=== PATIENT | male | born 1945 | race Caucasian/White ===

== ENCOUNTER 2023-02-09 16:58 | Inpatient (IN) | payer MEDICARE ==
[~2023-02-09] VITALS: Ht 180.3 cm; Wt 109.8 kg
[2023-02-09] MEDS ORDERED: KETOROLAC TROMETHAMINE 15 MG INJ IVP ONE (17:15)
[2023-02-09] MEDS ORDERED: DEXAMETHASONE SOD PHOSPHATE 4 MG INJ IV ONE (17:15)
[2023-02-09 17:26] LABS: ABG BASE EXCESS 0.2 mmol/L (-2.0-2.0); ABG HCO3 22.6 mmol/L (22.0-26.0); ABG PCO2 30.5 mmHg (35.0-48.0); ABG PH 7.488 (7.340-7.440); ABG PO2 63.3 mmHg (75.0-100.0); ABG SITE LEFT RADIAL; ABG TOTAL HEMOGLOBIN 14.2 G/dL (14.0-18.0); COHb 0.6 % (0.0-3.9); MetHb 0.2 % (0.0-1.5); O2Hb 91.4 % (94.0-97.0)
[2023-02-09] MEDS ORDERED: CEFD300C3 PO (17:31)
[2023-02-09] MEDS ORDERED: METH4TAB16 PO (17:31)
[2023-02-09 17:33] LABS: BASOPHILS # (AUTO) 0.1 K/UL (0.0-0.2); BASOPHILS % (AUTO) 2.4 % (0.0-2.0); HEMOGLOBIN 13.3 g/dL (12.5-16.3); LYMPHOCYTES # (AUTO) 0.6 K/uL (0.8-4.8); LYMPHOCYTES % (AUTO) 14.3 % (20.5-51.5); MEAN CORPUSCULAR HGB CONC 33 g/dL (32.5-36.3); MEAN CORPUSCULAR VOLUME 105.6 fL (73.0-96.2); MONOCYTES # (AUTO) 0.1 K/uL (0.1-1.30); MONOCYTES % (AUTO) 1.4 % (0.0-11.0); NEUTROPHILS # (AUTO) 3.3 K/uL (1.8-8.9); NEUTROPHILS % (AUTO) 81.9 % (38.5-71.5); PLATELET COUNT (AUTO) 132 K/uL (152-348); RED BLOOD CELL COUNT(AUTO) 3.79 MIL/uL (4.06-5.63); RED CELL DISTRIBUTION WIDTH 15.8 % (12.1-16.2)
[2023-02-09 17:44] LABS: CALCIUM 8.4 mg/dL (8.5-10.1); CARBON DIOXIDE 25 mmol/L (21-32); CHLORIDE 102 mmol/L (98-107); CREATININE 1.3 mg/dL (0.6-1.3); GLUCOSE 171 mg/dL (74-106); POTASSIUM 4.1 mmol/L (3.5-5.1); SODIUM SERUM 137 mmol/L (136-145); UREA NITROGEN, BLOOD 21 mg/dL (7-18)
[2023-02-09 17:47] LABS: DIFFERENTIAL COMMENT 1
[2023-02-09] MEDS ORDERED: FERR-56 PO (17:47)
[2023-02-09] MEDS ORDERED: AMOX500T2 PO (17:47)
[2023-02-09] MEDS ORDERED: CHOL2000 PO (17:47)
[2023-02-09] MEDS ORDERED: DILT-2 PO (17:47)
[2023-02-09] MEDS ORDERED: PANT40TA49 PO (17:47)
[2023-02-09] MEDS ORDERED: CLAR-45 PO (17:47)
[2023-02-09] MEDS ORDERED: ROSU10TA2 PO (17:47)
[2023-02-09] MEDS ORDERED: POLY119P17 PO (17:47)
[2023-02-09] MEDS ORDERED: VIT1CAPS44 PO (17:47)
[2023-02-09] MEDS ORDERED: UBID100C13 PO (17:47)
[2023-02-09] MEDS ORDERED: APIX2.5T PO (17:47)
[2023-02-09] MEDS ORDERED: FLEC100T2 PO (17:47)
[2023-02-09] MEDS ORDERED: ALLO300T2 PO (17:47)
[2023-02-09] MEDS ORDERED: OMEP40CA21 PO (17:47)
[2023-02-09] MEDS ORDERED: MAGN400C PO (17:47)
[2023-02-09] MEDS ORDERED: MECO10005 PO (17:47)
[2023-02-09 17:56] LABS: LACTIC ACID 2.2 mmol/L (0.4-2.0)
[2023-02-09] MEDS ORDERED: IV NORMAL SALINE 500 ML BAG IV ONE (18:00)
[2023-02-09] MEDS ORDERED: DEXAMETHASONE SOD PHOSPHATE 4 MG INJ ONE (18:01)
[2023-02-09 18:02] LABS: ALANINE AMINOTRANSFERASE 84 U/L (16-63); ALBUMIN 2.4 g/dL (3.4-5.0); ALKALINE PHOSPHATASE 90 U/L (50-136); ASPARTATE AMINOTRANSFERASE 43 U/L (15-37); BILIRUBIN,TOTAL 0.5 mg/dL (0.2-1.0); FERRITIN 276 ng/mL (26-388); LACTATE DEHYDROGENASE 177 U/L (85-227); NT-PRO BNP 587 pg/mL (0-125); TOTAL PROTEIN, SERUM 6.4 g/dL (6.4-8.2)
[2023-02-09] MEDS ORDERED: KETOROLAC TROMETHAMINE 15 MG INJ ONE (18:02)
[2023-02-09 18:14] LABS: C-REACTIVE PROTEIN 13.32 mg/dL (0.00-0.30)
[2023-02-09 18:35] LABS: CREATINE KINASE, TOTAL 140 U/L (39-308)
[2023-02-09] MEDS ORDERED: ACETAMINOPHEN 325 MG TABLET PO PRN (21:45)
[2023-02-09] MEDS ORDERED: MORPHINE SULFATE 2 MG/1 ML DISP.SYRIN IV PRN (21:45)
[2023-02-09] MEDS ORDERED: ONDANSETRON 4 MG/2 ML VIAL IV PRN (21:45)
[2023-02-09] MEDS ORDERED: ALBUTEROL SULFATE 1.25 MG/3 ML NEBU NEB PRN (21:45)
[2023-02-09] MEDS: CEFTRIAXONE 1 G in IV DEXTROSE 5% 50 ML IV SCH (22:45)
[2023-02-09] MEDS ORDERED: CEFTRIAXONE /D5W 50ML IVPB **ER PYXIS IV ONE (22:48)
[2023-02-10] MEDS ORDERED: ALBUTEROL SULFATE 8 GM HFA.AER.AD IH PRN (05:45)
[2023-02-10] MEDS ORDERED: PANTOPRAZOLE SODIUM 40 MG TABLET.DR PO ONE (07:33)
[2023-02-10] MEDS: PANTOPRAZOLE SODIUM 40 MG TABLET.DR PO SCH (07:34)
[2023-02-10 08:35] LABS: THYROID STIMULATING HORMONE 0.354 mIU/mL (0.358-3.740)
[2023-02-10 08:50] LABS: BASOPHILS % (AUTO) 0.1 % (0.0-2.0); EOSINOPHILS % (AUTO) 0.1 % (0.0-7.0); HEMATOCRIT 42.6 % (36.7-47.1); HEMOGLOBIN 14.1 g/dL (12.5-16.3); LYMPHOCYTES # (AUTO) 0.5 K/uL (0.8-4.8); LYMPHOCYTES % (AUTO) 7.8 % (20.5-51.5); MEAN CORPUSCULAR HEMOGLOBIN 35.1 uug (23.8-33.4); MEAN CORPUSCULAR HGB CONC 33 g/dL (32.5-36.3); MEAN CORPUSCULAR VOLUME 106.1 fL (73.0-96.2); MONOCYTES # (AUTO) 0.1 K/uL (0.1-1.30); MONOCYTES % (AUTO) 0.9 % (0.0-11.0); NEUTROPHILS # (AUTO) 5.3 K/uL (1.8-8.9); NEUTROPHILS % (AUTO) 91.1 % (38.5-71.5); PLATELET COUNT (AUTO) 139 K/uL (152-348); RED BLOOD CELL COUNT(AUTO) 4.01 MIL/uL (4.06-5.63); WHITE BLOOD COUNT (AUTO) 5.8 K/uL (3.6-10.2)
[2023-02-10] MEDS ORDERED: POLYETHYLENE GLYCOL 3350 238 GM POWDER PO SCH (09:00)
[2023-02-10 09:13] LABS: ALBUMIN 2.6 g/dL (3.4-5.0); BILIRUBIN,TOTAL 0.7 mg/dL (0.2-1.0); CREATININE 1.2 mg/dL (0.6-1.3); MAGNESIUM 2.8 mg/dL (1.8-2.4); PHOSPHOROUS 3.5 mg/dL (2.5-4.9); POTASSIUM 4.2 mmol/L (3.5-5.1); TOTAL PROTEIN, SERUM 7.3 g/dL (6.4-8.2)
[2023-02-10 09:21] LABS: CALCIUM 8.7 mg/dL (8.5-10.1)
[2023-02-10 09:24] LABS: DIFFERENTIAL COMMENT 1
[2023-02-10] MEDS ORDERED: DILTIAZEM HCL CD 120 MG CAP.SR.24H PO ONE (09:46)
[2023-02-10] MEDS ORDERED: DEXAMETHASONE SOD PHOSPHATE 10 MG INJ ONE ×2 (09:46→10:00)
[2023-02-10] MEDS ORDERED: MIRALAX 17 GM POWD.PACK ONE (09:46)
[2023-02-10] MEDS ORDERED: CHOLECALCIFEROL 1,000 UNIT TABLET ONE (09:49)
[2023-02-10] MEDS: APIXABAN 2.5 MG TABLET PO SCH ×2 (09:57→20:10)
[2023-02-10] MEDS: MIRALAX 17 GM POWD.PACK PO SCH (09:57)
[2023-02-10] MEDS: DILTIAZEM HCL CD 120 MG CAP.SR.24H PO SCH (09:57)
[2023-02-10] MEDS: CHOLECALCIFEROL 1,000 UNIT TABLET PO SCH (09:57)
[2023-02-10] MEDS: FLECAINIDE ACETATE 100 MG TABLET PO SCH ×2 (09:57→20:07)
[2023-02-10] MEDS: DEXAMETHASONE SOD PHOSPHATE 4 MG INJ IV SCH (09:57)
[2023-02-10] MEDS ORDERED: REMDESIVIR (CHARGED) 200 MG in IV NORMAL SALINE 210 ML IV ONE (11:00)
[2023-02-10 16:18] VITALS: O2SAT 95
[2023-02-10 16:29] LABS: *BILIRUBIN,URIN NEGATIVE (NEGATIVE); *BLOOD, URINE 2+ (NEGATIVE); *CLARITY,URINE CLEAR (CLEAR); *COLOR,URINE YELLOW (YELLOW); *KETONES,URINE NEGATIVE (NEGATIVE); *PROTEIN,URINE NEGATIVE (NEGATIVE); *UROBILINOGEN,URINE 0.2 E.U./dl (NORMAL); LEUKOCYTE ESTERASE ,URINE NEGATIVE (NEGATIVE); NITRITE, URINE NEGATIVE (NEGATIVE)
[2023-02-10 18:35] LABS: UGLUCOSE 2+ (NEGATIVE)
[2023-02-10 19:20] LABS: BACTERIA,URINE NONE SEEN /HPF (NONE SEEN); WBC,URINE 0-3 /HPF (0-3)
[2023-02-10 19:21] LABS: SQUAMOUS EPITHELIAL CELL,UR NONE SEEN /HPF (NONE SEEN)
[2023-02-10] MEDS: ATORVASTATIN 20 MG TABLET PO SCH (20:07)
[2023-02-10 20:15] VITALS: BP 130/83; TEMP 97.6; O2SAT 93
[2023-02-10] MEDS: CEFTRIAXONE 1 G in IV DEXTROSE 5% 50 ML IV SCH (22:26)
[2023-02-11 00:10] VITALS: BP 130/83; TEMP 98.4; O2SAT 95
[2023-02-11 04:10] VITALS: BP 128/75; TEMP 97.6; O2SAT 93
[2023-02-11] MEDS: PANTOPRAZOLE SODIUM 40 MG TABLET.DR PO SCH (06:30)
[2023-02-11 07:38] LABS: BASOPHILS % (AUTO) 0.2 % (0.0-2.0); HEMATOCRIT 37.9 % (36.7-47.1); HEMOGLOBIN 12.6 g/dL (12.5-16.3); LYMPHOCYTES # (AUTO) 0.4 K/uL (0.8-4.8); LYMPHOCYTES % (AUTO) 6.3 % (20.5-51.5); MEAN CORPUSCULAR HGB CONC 33 g/dL (32.5-36.3); MEAN CORPUSCULAR VOLUME 105.5 fL (73.0-96.2); MONOCYTES # (AUTO) 0.1 K/uL (0.1-1.30); MONOCYTES % (AUTO) 0.9 % (0.0-11.0); NEUTROPHILS # (AUTO) 5.5 K/uL (1.8-8.9); NEUTROPHILS % (AUTO) 92.6 % (38.5-71.5); PLATELET COUNT (AUTO) 145 K/uL (152-348); RED BLOOD CELL COUNT(AUTO) 3.59 MIL/uL (4.06-5.63); RED CELL DISTRIBUTION WIDTH 15.6 % (12.1-16.2); WHITE BLOOD COUNT (AUTO) 5.9 K/uL (3.6-10.2)
[2023-02-11 07:54] LABS: DIFFERENTIAL COMMENT 1
[2023-02-11 08:26] LABS: ALANINE AMINOTRANSFERASE 65 U/L (16-63); ALBUMIN 2.2 g/dL (3.4-5.0); ALKALINE PHOSPHATASE 73 U/L (50-136); ASPARTATE AMINOTRANSFERASE 16 U/L (15-37); BILIRUBIN,DIRECT 0.1 mg/dL (0.0-0.2); BILIRUBIN,TOTAL 0.4 mg/dL (0.2-1.0); CALCIUM 8.6 mg/dL (8.5-10.1); CARBON DIOXIDE 28 mmol/L (21-32); CHLORIDE 104 mmol/L (98-107); GLUCOSE 177 mg/dL (74-106); POTASSIUM 4.4 mmol/L (3.5-5.1); SODIUM SERUM 138 mmol/L (136-145); TOTAL PROTEIN, SERUM 6.3 g/dL (6.4-8.2); UREA NITROGEN, BLOOD 28 mg/dL (7-18)
[2023-02-11] MEDS: CHOLECALCIFEROL 1,000 UNIT TABLET PO SCH (09:23)
[2023-02-11] MEDS: MIRALAX 17 GM POWD.PACK PO SCH (09:24)
[2023-02-11] MEDS: APIXABAN 2.5 MG TABLET PO SCH ×2 (09:24→20:26)
[2023-02-11] MEDS: DEXAMETHASONE SOD PHOSPHATE 4 MG INJ IV SCH (09:26)
[2023-02-11] MEDS: FLECAINIDE ACETATE 100 MG TABLET PO SCH ×2 (09:29→20:27)
[2023-02-11] MEDS: DILTIAZEM HCL CD 120 MG CAP.SR.24H PO SCH (09:39)
[2023-02-11 10:44] VITALS: BP 129/76; TEMP 98; O2SAT 93
[2023-02-11] MEDS: REMDESIVIR (CHARGED) 100 MG in IV NORMAL SALINE 100 ML IV SCH (11:41)
[2023-02-11 16:15] VITALS: O2SAT 94
[2023-02-11] MEDS: ATORVASTATIN 20 MG TABLET PO SCH (20:24)
[2023-02-11] MEDS: CEFTRIAXONE 2 G in IV DEXTROSE 5% 100 ML IV SCH (20:26)
[2023-02-11 20:36] VITALS: BP 135/80; TEMP 97.9; O2SAT 94
[2023-02-11 22:26] VITALS: O2SAT 96
[2023-02-12 00:09] VITALS: BP 134/84; TEMP 98.2; O2SAT 96
[2023-02-12 04:36] VITALS: BP 139/84; TEMP 97.7; O2SAT 93
[2023-02-12] MEDS: PANTOPRAZOLE SODIUM 40 MG TABLET.DR PO SCH (06:23)
[2023-02-12 07:56] LABS: BASOPHILS % (AUTO) 0.1 % (0.0-2.0); HEMATOCRIT 38.9 % (36.7-47.1); HEMOGLOBIN 12.8 g/dL (12.5-16.3); LYMPHOCYTES # (AUTO) 0.4 K/uL (0.8-4.8); MEAN CORPUSCULAR HEMOGLOBIN 34.7 uug (23.8-33.4); MEAN CORPUSCULAR HGB CONC 33 g/dL (32.5-36.3); MEAN CORPUSCULAR VOLUME 105.3 fL (73.0-96.2); MONOCYTES # (AUTO) 0.1 K/uL (0.1-1.30); MONOCYTES % (AUTO) 1.3 % (0.0-11.0); NEUTROPHILS # (AUTO) 4.2 K/uL (1.8-8.9); NEUTROPHILS % (AUTO) 89.6 % (38.5-71.5); PLATELET COUNT (AUTO) 180 K/uL (152-348); RED BLOOD CELL COUNT(AUTO) 3.69 MIL/uL (4.06-5.63); RED CELL DISTRIBUTION WIDTH 15.8 % (12.1-16.2); WHITE BLOOD COUNT (AUTO) 4.7 K/uL (3.6-10.2)
[2023-02-12 08:02] LABS: DIFFERENTIAL COMMENT 1
[2023-02-12 08:09] LABS: ALANINE AMINOTRANSFERASE 68 U/L (16-63); ALBUMIN 2.1 g/dL (3.4-5.0); ALKALINE PHOSPHATASE 77 U/L (50-136); ASPARTATE AMINOTRANSFERASE 29 U/L (15-37); BILIRUBIN,DIRECT 0.2 mg/dL (0.0-0.2); BILIRUBIN,TOTAL 0.4 mg/dL (0.2-1.0); CALCIUM 8.8 mg/dL (8.5-10.1); CARBON DIOXIDE 27 mmol/L (21-32); CHLORIDE 104 mmol/L (98-107); CREATININE 0.9 mg/dL (0.6-1.3); GLUCOSE 176 mg/dL (74-106); POTASSIUM 4.6 mmol/L (3.5-5.1); SODIUM SERUM 137 mmol/L (136-145); TOTAL PROTEIN, SERUM 6.4 g/dL (6.4-8.2); UREA NITROGEN, BLOOD 31 mg/dL (7-18)
[2023-02-12] MEDS: FLECAINIDE ACETATE 100 MG TABLET PO SCH ×2 (10:29→21:27)
[2023-02-12] MEDS: CHOLECALCIFEROL 1,000 UNIT TABLET PO SCH (10:29)
[2023-02-12] MEDS: DILTIAZEM HCL CD 120 MG CAP.SR.24H PO SCH (10:29)
[2023-02-12] MEDS: DEXAMETHASONE SOD PHOSPHATE 4 MG INJ IV SCH (10:29)
[2023-02-12] MEDS: MIRALAX 17 GM POWD.PACK PO SCH (10:30)
[2023-02-12] MEDS: APIXABAN 2.5 MG TABLET PO SCH ×2 (10:44→21:30)
[2023-02-12 12:00] VITALS: BP 134/86; TEMP 97.6; O2SAT 97
[2023-02-12] MEDS: REMDESIVIR (CHARGED) 100 MG in IV NORMAL SALINE 100 ML IV SCH (12:34)
[2023-02-12 16:14] VITALS: BP 133/86; TEMP 97.5; O2SAT 98
[2023-02-12 20:00] VITALS: BP 138/80; TEMP 98.1; O2SAT 91
[2023-02-12] MEDS: CEFTRIAXONE 2 G in IV DEXTROSE 5% 100 ML IV SCH (21:27)
[2023-02-12] MEDS: ATORVASTATIN 20 MG TABLET PO SCH (21:27)
[2023-02-13 00:32] VITALS: BP 129/68; TEMP 98.4; O2SAT 90
[2023-02-13 04:55] VITALS: BP 127/69; TEMP 98.1; O2SAT 95
[2023-02-13] MEDS: PANTOPRAZOLE SODIUM 40 MG TABLET.DR PO SCH (07:04)
[2023-02-13 07:55] LABS: BASOPHILS % (AUTO) 0.2 % (0.0-2.0); EOSINOPHILS % (AUTO) 0.1 % (0.0-7.0); HEMATOCRIT 38.1 % (36.7-47.1); HEMOGLOBIN 12.9 g/dL (12.5-16.3); LYMPHOCYTES # (AUTO) 0.3 K/uL (0.8-4.8); LYMPHOCYTES % (AUTO) 11.3 % (20.5-51.5); MEAN CORPUSCULAR HEMOGLOBIN 35.5 uug (23.8-33.4); MEAN CORPUSCULAR HGB CONC 34 g/dL (32.5-36.3); MEAN CORPUSCULAR VOLUME 104.9 fL (73.0-96.2); MONOCYTES # (AUTO) 0.1 K/uL (0.1-1.30); MONOCYTES % (AUTO) 2.8 % (0.0-11.0); NEUTROPHILS # (AUTO) 2.4 K/uL (1.8-8.9); NEUTROPHILS % (AUTO) 85.6 % (38.5-71.5); PLATELET COUNT (AUTO) 190 K/uL (152-348); RED BLOOD CELL COUNT(AUTO) 3.64 MIL/uL (4.06-5.63); RED CELL DISTRIBUTION WIDTH 15.4 % (12.1-16.2); WHITE BLOOD COUNT (AUTO) 2.8 K/uL (3.6-10.2)
[2023-02-13 08:15] LABS: DIFFERENTIAL COMMENT 1
[2023-02-13 08:30] LABS: ALANINE AMINOTRANSFERASE 101 U/L (16-63); ALBUMIN 2.1 g/dL (3.4-5.0); ALKALINE PHOSPHATASE 91 U/L (50-136); ASPARTATE AMINOTRANSFERASE 51 U/L (15-37); BILIRUBIN,DIRECT 0.1 mg/dL (0.0-0.2); BILIRUBIN,TOTAL 0.3 mg/dL (0.2-1.0); CALCIUM 8.8 mg/dL (8.5-10.1); CARBON DIOXIDE 27 mmol/L (21-32); CHLORIDE 102 mmol/L (98-107); GLUCOSE 226 mg/dL (74-106); POTASSIUM 4.4 mmol/L (3.5-5.1); SODIUM SERUM 135 mmol/L (136-145); TOTAL PROTEIN, SERUM 6.4 g/dL (6.4-8.2); UREA NITROGEN, BLOOD 29 mg/dL (7-18)
[2023-02-13] MEDS ORDERED: ENSURE ENLIVE (VAN) 240 ML LIQUID PO SCH (09:00)
[2023-02-13] MEDS: DILTIAZEM HCL CD 120 MG CAP.SR.24H PO SCH (09:43)
[2023-02-13] MEDS: CHOLECALCIFEROL 1,000 UNIT TABLET PO SCH (09:44)
[2023-02-13] MEDS: FLECAINIDE ACETATE 100 MG TABLET PO SCH ×2 (09:44→21:16)
[2023-02-13] MEDS: GLUCERNA SHAKE 237 ML CAN PO SCH (09:45)
[2023-02-13] MEDS: MIRALAX 17 GM POWD.PACK PO SCH (09:45)
[2023-02-13] MEDS: APIXABAN 2.5 MG TABLET PO SCH ×2 (09:47→21:17)
[2023-02-13] MEDS: DEXAMETHASONE SOD PHOSPHATE 4 MG INJ IV SCH (09:53)
[2023-02-13 12:00] VITALS: BP 138/57; TEMP 98; O2SAT 97
[2023-02-13] MEDS: REMDESIVIR (CHARGED) 100 MG in IV NORMAL SALINE 100 ML IV SCH (12:04)
[2023-02-13 16:36] VITALS: O2SAT 95
[2023-02-13 20:00] VITALS: BP 131/79; TEMP 98; O2SAT 94
[2023-02-13] MEDS: ATORVASTATIN 20 MG TABLET PO SCH (21:16)
[2023-02-13] MEDS: CEFTRIAXONE 2 G in IV DEXTROSE 5% 100 ML IV SCH (21:16)
[2023-02-14] VITALS: BP 129/70; TEMP 98; O2SAT 94
[2023-02-14 04:00] VITALS: BP 143/87; TEMP 98.5; O2SAT 95
[2023-02-14 08:06] LABS: BASOPHILS % (AUTO) 0.1 % (0.0-2.0); EOSINOPHILS % (AUTO) 0.1 % (0.0-7.0); HEMOGLOBIN 13.7 g/dL (12.5-16.3); LYMPHOCYTES # (AUTO) 0.3 K/uL (0.8-4.8); LYMPHOCYTES % (AUTO) 13.1 % (20.5-51.5); MEAN CORPUSCULAR HEMOGLOBIN 35.6 uug (23.8-33.4); MEAN CORPUSCULAR HGB CONC 34 g/dL (32.5-36.3); MEAN CORPUSCULAR VOLUME 104.1 fL (73.0-96.2); MONOCYTES # (AUTO) 0.1 K/uL (0.1-1.30); MONOCYTES % (AUTO) 3.2 % (0.0-11.0); NEUTROPHILS # (AUTO) 2.1 K/uL (1.8-8.9); NEUTROPHILS % (AUTO) 83.5 % (38.5-71.5); PLATELET COUNT (AUTO) 206 K/uL (152-348); RED BLOOD CELL COUNT(AUTO) 3.84 MIL/uL (4.06-5.63); RED CELL DISTRIBUTION WIDTH 15.7 % (12.1-16.2); WHITE BLOOD COUNT (AUTO) 2.5 K/uL (3.6-10.2)
[2023-02-14 08:24] LABS: DIFFERENTIAL COMMENT 1
[2023-02-14 09:05] LABS: ALANINE AMINOTRANSFERASE 108 U/L (16-63); ALBUMIN 2.2 g/dL (3.4-5.0); ALKALINE PHOSPHATASE 87 U/L (50-136); ASPARTATE AMINOTRANSFERASE 37 U/L (15-37); BILIRUBIN,DIRECT 0.2 mg/dL (0.0-0.2); BILIRUBIN,TOTAL 0.4 mg/dL (0.2-1.0); CALCIUM 8.9 mg/dL (8.5-10.1); CARBON DIOXIDE 28 mmol/L (21-32); CHLORIDE 98 mmol/L (98-107); GLUCOSE 224 mg/dL (74-106); POTASSIUM 4.3 mmol/L (3.5-5.1); SODIUM SERUM 130 mmol/L (136-145); TOTAL PROTEIN, SERUM 6.4 g/dL (6.4-8.2); UREA NITROGEN, BLOOD 30 mg/dL (7-18)
[2023-02-14 10:38] VITALS: BP 119/71; TEMP 97.1; O2SAT 97
[2023-02-14] MEDS: CHOLECALCIFEROL 1,000 UNIT TABLET PO SCH (10:41)
[2023-02-14] MEDS: GLUCERNA SHAKE 237 ML CAN PO SCH (10:42)
[2023-02-14] MEDS: DILTIAZEM HCL CD 120 MG CAP.SR.24H PO SCH (10:42)
[2023-02-14] MEDS: DEXAMETHASONE SOD PHOSPHATE 4 MG INJ IV SCH (10:43)
[2023-02-14] MEDS: MIRALAX 17 GM POWD.PACK PO SCH (10:46)
[2023-02-14] MEDS: PANTOPRAZOLE SODIUM 40 MG TABLET.DR PO SCH (10:46)
[2023-02-14] MEDS: APIXABAN 2.5 MG TABLET PO SCH (10:48)
[2023-02-14] MEDS: FLECAINIDE ACETATE 100 MG TABLET PO SCH (10:49)
[2023-02-14] MEDS ORDERED: ALBU8HFA4 IH (11:54)
[2023-02-14] MEDS ORDERED: DOXY100C5 PO ×2 (11:54→15:36)
[2023-02-14] MEDS ORDERED: ACET325T53 PO (11:54)
[2023-02-14] MEDS ORDERED: DEXA4TAB PO ×2 (11:54→15:36)
[2023-02-14] MEDS: REMDESIVIR (CHARGED) 100 MG in IV NORMAL SALINE 100 ML IV SCH (12:11)
[2023-02-14 13:42] VITALS: BP 119/71; TEMP 97.1; O2SAT 97
== END 2023-02-14 15:30 | disposition home or self-care (01) | DRG 177 ==
LOC: ER 17:00 → TRANSITION 20:59 → TELE3 02-10 17:23
PROVIDERS: ADMIT Internal Medicine; ATTEND Nurse Practitioner Acute Care
PROC: XW033E5 Introduction of Remdesivir Anti-infective into Peripheral Vein, Percutaneous Approach, New Technology Group 5 (ICD-10-PCS; principal; 2023-02-10)
DX: U07.1 COVID-19 (principal); J12.82 Pneumonia due to coronavirus disease 2019; J96.01 Acute respiratory failure with hypoxia; J15.9 Unspecified bacterial pneumonia; I25.10 Atherosclerotic heart disease of native coronary artery without angina pectoris; Z95.5 Presence of coronary angioplasty implant and graft; E78.5 Hyperlipidemia, unspecified; E66.9 Obesity, unspecified; Z68.33 Body mass index [BMI] 33.0-33.9, adult; Z95.0 Presence of cardiac pacemaker; Z85.46 Personal history of malignant neoplasm of prostate; Z90.79 Acquired absence of other genital organ(s); Z82.0 Family history of epilepsy and other diseases of the nervous system; Z82.49 Family history of ischemic heart disease and other diseases of the circulatory system; K21.9 Gastro-esophageal reflux disease without esophagitis; I48.0 Paroxysmal atrial fibrillation; D64.9 Anemia, unspecified; R79.89 Other specified abnormal findings of blood chemistry; I11.9 Hypertensive heart disease without heart failure; E11.9 Type 2 diabetes mellitus without complications; R79.82 Elevated C-reactive protein (CRP); Z79.01 Long term (current) use of anticoagulants
CPT/HCPCS: 36415; 36600; 71045; 82803; 83605; 83615; 83735; 84100; 84443; 84484; 85025; 85610; 85730; 86140; 87040; 93005; A4606; A4663; G0378; J0248; J0696; J1100; J1885

== ENCOUNTER 2023-07-13 19:28 | Inpatient (IN) | payer MEDICARE ==
[~2023-07-13] VITALS: Ht 180.3 cm; Wt 93.4 kg
[~2023-07-13 19:28] MED LIST: DILT-2 PO; FERR-56 PO; FLEC100T2 PO; FURO40TA5 PO; MECO10005 PO; OMEP40CA21 PO; POLY119P17 PO; ROSU10TA2 PO; VIT1CAPS44 PO
[2023-07-13] MEDS ORDERED: NITROGLYCERIN OINT 1 GM PACKET TP ONE (20:00)
[2023-07-13] MEDS ORDERED: ASPIRIN 81 MG TAB.CHEW ONE (20:00)
[2023-07-13] MEDS ORDERED: FUROSEMIDE 40 MG/4 ML VIAL ONE ×2 (20:00→21:08)
[2023-07-13 20:07] LABS: BASOPHILS % (AUTO) 0.4 % (0.0-2.0); EOSINOPHILS % (AUTO) 0.1 % (0.0-7.0); HEMATOCRIT 33.9 % (36.7-47.1); HEMOGLOBIN 11.2 g/dL (12.5-16.3); LYMPHOCYTES # (AUTO) 0.3 K/uL (0.8-4.8); LYMPHOCYTES % (AUTO) 6.5 % (20.5-51.5); MEAN CORPUSCULAR HEMOGLOBIN 32.6 uug (23.8-33.4); MEAN CORPUSCULAR HGB CONC 33 g/dL (32.5-36.3); MEAN CORPUSCULAR VOLUME 99.2 fL (73.0-96.2); MONOCYTES # (AUTO) 0.1 K/uL (0.1-1.30); MONOCYTES % (AUTO) 2.2 % (0.0-11.0); NEUTROPHILS # (AUTO) 3.6 K/uL (1.8-8.9); NEUTROPHILS % (AUTO) 90.8 % (38.5-71.5); PLATELET COUNT (AUTO) 122 K/uL (152-348); RED BLOOD CELL COUNT(AUTO) 3.42 MIL/uL (4.06-5.63); RED CELL DISTRIBUTION WIDTH 18.1 % (12.1-16.2)
[2023-07-13 20:11] LABS: DIFFERENTIAL COMMENT 1
[2023-07-13 20:16] LABS: CALCIUM 8.3 mg/dL (8.5-10.1); CARBON DIOXIDE 31 mmol/L (21-32); CHLORIDE 98 mmol/L (98-107); CREATININE 1.2 mg/dL (0.6-1.3); GLUCOSE 203 mg/dL (74-106); POTASSIUM 4.8 mmol/L (3.5-5.1); SODIUM SERUM 137 mmol/L (136-145); UREA NITROGEN, BLOOD 32 mg/dL (7-18)
[2023-07-13] MEDS: ASPIRIN 81 MG TAB.CHEW PO ONE (20:18)
[2023-07-13] MEDS: NITROGLYCERIN OINT 1 GM PACKET TP ONE (20:18)
[2023-07-13] MEDS: FUROSEMIDE 40 MG/4 ML VIAL IV ONE ×2 (20:26→21:21)
[2023-07-13 20:29] LABS: ALANINE AMINOTRANSFERASE 33 U/L (16-63); ALBUMIN 2.5 g/dL (3.4-5.0); ALKALINE PHOSPHATASE 108 U/L (50-136); ASPARTATE AMINOTRANSFERASE 9 U/L (15-37); BILIRUBIN,DIRECT 0.2 mg/dL (0.0-0.2); BILIRUBIN,TOTAL 0.8 mg/dL (0.2-1.0); NT-PRO BNP 6683 pg/mL (0-125); TOTAL PROTEIN, SERUM 6.4 g/dL (6.4-8.2)
[2023-07-13] MEDS ORDERED: PRED20TA PO (20:30)
[2023-07-13] MEDS ORDERED: GABA-532 PO (20:30)
[2023-07-13] MEDS ORDERED: APIX2.5T PO (20:30)
[2023-07-13] MEDS ORDERED: POTASSIUM CHLORIDE 20 MEQ TAB.PRT.SR ONE (21:08)
[2023-07-13] MEDS: POTASSIUM CHLORIDE 20 MEQ TAB.PRT.SR PO ONE (21:21)
[2023-07-14] VITALS: BP 114/70; TEMP 97.7
[2023-07-14] MEDS ORDERED: DEXTROSE 50% 50 ML DISP.SYRIN IV PRN (01:00)
[2023-07-14] MEDS ORDERED: FERROUS SULFATE 325 MG TABEC PO PRN (01:00)
[2023-07-14] MEDS ORDERED: REMEDY ESSENTIAL ZINC PASTE 113 GM TP PRN (01:00)
[2023-07-14] MEDS ORDERED: ONDANSETRON 4 MG/2 ML VIAL IV PRN (01:00)
[2023-07-14] MEDS ORDERED: ZOLPIDEM 5 MG TABLET PO PRN (01:00)
[2023-07-14] MEDS ORDERED: ACETAMINOPHEN 325 MG TABLET PO PRN (01:00)
[2023-07-14] MEDS ORDERED: MAGNESIUM HYDROXIDE 30 ML LIQUID UDC PO PRN (01:00)
[2023-07-14] MEDS: BLOOD SUGAR DIAGNOSTIC 1 EACH STRIP VI SCH (06:53)
[2023-07-14 08:13] VITALS: BP 105/43; TEMP 97.7
[2023-07-14] MEDS ORDERED: predniSONE 20 MG TABLET PO SCH (09:00)
[2023-07-14] MEDS ORDERED: FLECAINIDE ACETATE 100 MG TABLET PO SCH (09:00)
[2023-07-14] MEDS ORDERED: DILTIAZEM HCL CD 120 MG CAP.SR.24H PO SCH (09:00)
[2023-07-14] MEDS ORDERED: GABAPENTIN 100 MG CAPSULE PO SCH (09:00)
[2023-07-14] MEDS: APIXABAN 2.5 MG TABLET PO SCH (09:21)
[2023-07-14] MEDS: FUROSEMIDE 40 MG/4 ML VIAL IV SCH (09:21)
[2023-07-14] MEDS: GABAPENTIN 300 MG CAPSULE PO SCH (09:21)
[2023-07-14] MEDS ORDERED: ALLO100T PO (12:26)
[2023-07-14] MEDS ORDERED: CHOL-35 PO (12:26)
[2023-07-14] MEDS ORDERED: POTA10CA43 PO (12:26)
[2023-07-14 12:51] VITALS: BP 105/43; TEMP 97.7
[2023-07-14] MEDS: DILTIAZEM HCL CD 120 MG CAP.SR.24H PO ONE (12:55)
[2023-07-14] MEDS: HYDROCODONE/APAP 5-325MG TABLET PO PRN (14:47)
[2023-07-14 16:26] VITALS: O2SAT 95
[2023-07-14] MEDS: ATORVASTATIN 20 MG TABLET PO SCH (21:12)
[2023-07-14] MEDS: FLECAINIDE ACETATE 100 MG TABLET PO SCH (21:13)
[2023-07-14 21:18] VITALS: BP 115/49; TEMP 98.3; O2SAT 96
[2023-07-15] VITALS (7 sets, daily range): BP systolic 104–124; BP diastolic 42–56; TEMP 97.6–98.9; O2SAT 92–97
[2023-07-15 07:32] LABS: BASOPHILS % (AUTO) 0.2 % (0.0-2.0); EOSINOPHILS % (AUTO) 1.2 % (0.0-7.0); HEMATOCRIT 29.6 % (36.7-47.1); HEMOGLOBIN 10.4 g/dL (12.5-16.3); LYMPHOCYTES # (AUTO) 0.9 K/uL (0.8-4.8); LYMPHOCYTES % (AUTO) 24.3 % (20.5-51.5); MEAN CORPUSCULAR HGB CONC 35 g/dL (32.5-36.3); MEAN CORPUSCULAR VOLUME 99.3 fL (73.0-96.2); MONOCYTES # (AUTO) 0.1 K/uL (0.1-1.30); NEUTROPHILS # (AUTO) 2.6 K/uL (1.8-8.9); NEUTROPHILS % (AUTO) 72.3 % (38.5-71.5); PLATELET COUNT (AUTO) 110 K/uL (152-348); RED BLOOD CELL COUNT(AUTO) 2.98 MIL/uL (4.06-5.63); RED CELL DISTRIBUTION WIDTH 18.2 % (12.1-16.2); WHITE BLOOD COUNT (AUTO) 3.5 K/uL (3.6-10.2)
[2023-07-15 07:38] LABS: CALCIUM 8.2 mg/dL (8.5-10.1); CREATININE 1.1 mg/dL (0.6-1.3); MAGNESIUM 2.6 mg/dL (1.8-2.4); PHOSPHOROUS 4.2 mg/dL (2.5-4.9); POTASSIUM 4.3 mmol/L (3.5-5.1)
[2023-07-15 08:05] LABS: DIFFERENTIAL COMMENT 1
[2023-07-15] MEDS: ALLOPURINOL 100 MG TABLET PO SCH (08:18)
[2023-07-15] MEDS: POTASSIUM CHLORIDE 10 MEQ TAB.PRT.SR PO SCH (08:18)
[2023-07-15] MEDS: CHOLECALCIFEROL 1,000 UNIT TABLET PO SCH (08:18)
[2023-07-15] MEDS: predniSONE 20 MG TABLET PO SCH (08:19)
[2023-07-15] MEDS: DILTIAZEM HCL CD 120 MG CAP.SR.24H PO SCH (08:59)
[2023-07-15] MEDS: LINEZOLID IV 600 MG in PREMIXED 1 EACH IV SCH (10:18)
[2023-07-15] MEDS: INSULIN REGULAR, HUMAN 300 UNIT/3 ML VIAL SQ PRN (12:05)
[2023-07-16] VITALS: BP 119/50; TEMP 98; O2SAT 96
== END 2023-07-16 01:00 | disposition short-term general hospital (02) | DRG 288 ==
LOC: ER 19:31 → TELE3 21:30
PROVIDERS: ATTEND Nurse Practitioner Acute Care
DX: I33.0 Acute and subacute infective endocarditis (principal); I50.33 Acute on chronic diastolic (congestive) heart failure; J96.01 Acute respiratory failure with hypoxia; E44.0 Moderate protein-calorie malnutrition; Z16.21 Resistance to vancomycin; I11.0 Hypertensive heart disease with heart failure; I48.0 Paroxysmal atrial fibrillation; I27.22 Pulmonary hypertension due to left heart disease; I08.3 Combined rheumatic disorders of mitral, aortic and tricuspid valves; I25.10 Atherosclerotic heart disease of native coronary artery without angina pectoris; Z95.5 Presence of coronary angioplasty implant and graft; Z95.0 Presence of cardiac pacemaker; Z86.16 Personal history of COVID-19; Z79.899 Other long term (current) drug therapy; B95.2 Enterococcus as the cause of diseases classified elsewhere; Z79.01 Long term (current) use of anticoagulants; E88.09 Other disorders of plasma-protein metabolism, not elsewhere classified; Z68.28 Body mass index [BMI] 28.0-28.9, adult; E11.9 Type 2 diabetes mellitus without complications; E78.5 Hyperlipidemia, unspecified
CPT/HCPCS: 36415; 71045; 83735; 84100; 84484; 85025; 85651; 86140; 87040; 93005; 93307; A4606; A4663; G0378; J1815; J1940; J2020; J7512; J8499